=== PATIENT | male | born 1990 | race Caucasian/White ===

== ENCOUNTER 2016-04-13 21:47 | Emergency (ER) | END 2016-04-13 22:38 | DX: S02.40FA Zygomatic fracture, left side, initial encounter for closed fracture (principal); S05.12XA Contusion of eyeball and orbital tissues, left eye, initial encounter; F17.210 Nicotine dependence, cigarettes, uncomplicated; R40.2142 Coma scale, eyes open, spontaneous, at arrival to emergency department; R40.2252 Coma scale, best verbal response, oriented, at arrival to emergency department; R40.2362 Coma scale, best motor response, obeys commands, at arrival to emergency department; Y04.2XXA Assault by strike against or bumped into by another person, initial encounter ==